=== PATIENT | female | born 1985 | race Caucasian/White ===

== ENCOUNTER 2016-05-01 21:06 | Emergency (ER) | payer OTHER ==
[~2016-05-01] VITALS: Ht 160 cm; Wt 51.9 kg
[~2016-05-01 21:06] MED LIST: ADDERALL XR 2020 MG PO; ATARAX,VISTARIL25 MG PO; ATARAX,VISTARIL50 MG PO; CIPRO250 MG PO; DULOXETINE HCL30 MG PO; LAMOTRIGINE100 MG PO; LAMOTRIGINE200 MG PO; LATUDA60 MG PO; LEVAQUIN750 MG PO; METHADONE 22 MG/1 ML PO; METHADONE H5 MG/5 ML PO; METHADONE10 MG PO; PRAZOSIN HCL2 MG PO; QUETIAPINE FUM300 MG PO; STRATTERA40 MG PO; XANAX0.5 MG PO
[2016-05-01 21:36] LABS: HEMATOCRIT 40.5 % (36.0-46.0); MCH 32.4 PG (29.0-34.0); MCHC 35.6 G/DL (30.0-36.0); MCV 91.2 FL (83-99); MEAN PLAT.VOLUME 8.4 uM^3 (9.5-12.4); PLATELET COUNT 397 K/uL (156-360); RBC DIS.WIDTH-SD 39.1 % (39-53); RED BLOOD COUNT 4.44 M/uL (3.80-5.20); WHITE BLOOD COUNT 9.5 K/uL (4.1-10.2)
[2016-05-01] MEDS ORDERED: GABAPENTIN300 MG PO (21:38)
[2016-05-01] MEDS ORDERED: ADDERALL (21:39)
[2016-05-01] MEDS ORDERED: LAMICTAL200 MG PO (21:39)
[2016-05-01 21:44] LABS: ADD MIUA? YES; BILIRUBIN NEGATIVE; BLOOD NEGATIVE; COLOR YELLOW ((YELLOW)); GLUCOSE (STRIP) NEGATIVE; KETONES NEGATIVE; LEUKOCYTES MODERATE; NITRITE NEGATIVE; PROTEIN (STRIP) NEGATIVE; SPECIFIC GRAVITY 1.015 (1.000-1.030); UROBILINOGEN 0.2 MG/DL (0.2-1.0)
[2016-05-01 21:48] LABS: CHLORIDE 111 mEq/L (99-109); POTASSIUM 3.5 mEq/L (3.7-5.4); SODIUM 145 mEq/L (136-147)
[2016-05-01 21:49] LABS: GLUCOSE 99 mg/dL (70-99)
[2016-05-01 21:51] LABS: ANION GAP 14 MEQ/L (2-14)
[2016-05-01 21:52] LABS: SERUM ETHYL ALCOHOL 323 mg/dL
[2016-05-01 21:53] LABS: GFR ESTIMATE (CALCULATED) > 59 mL/min/
[2016-05-01 21:55] LABS: UREA NITROGEN (BUN) 14 mg/dL (9-23)
[2016-05-01 21:56] LABS: SALICYLATE < 5.0 MG/DL (15-30)
[2016-05-01 22:05] LABS: QUANTITATIVE HCG < 4.0 MIU/ML
[2016-05-01 22:21] LABS: AMPHETAMINE NEGATIVE (500 ng/mL); BARBITURATES NEGATIVE (200 ng/mL); BENZODIAZEPINES NEGATIVE (150 ng/mL); COCAINE NEGATIVE (150 ng/mL); INTERNAL CONTROLS VALID? YES; METHADONE NEGATIVE (200 ng/mL); METHAMPHETAMINE NEGATIVE (500 ng/mL); OPIATES (MORPHINE) NEGATIVE (100 ng/mL); OXYCODONE NEGATIVE (100 ng/mL); PHENCYCLIDINE NEGATIVE (25 ng/mL); PROPOXYPHENE NEGATIVE (300 ng/mL); THC CANNABINOIDS NEGATIVE (50 ng/mL); TRICYCLIC ANTIDEPRESSANTS NEGATIVE (300 ng/mL)
[2016-05-01 22:24] LABS: BACTERIA 3+ /HPF; CASTS NONE SEEN /LPF; CRYSTALS NONE SEEN; EPITHELIAL CELLS 1+ /HPF; MUCUS RARE /LPF; RED BLOOD CELLS 0-5 /HPF (0-5); UCUL ADDED? NO; WHITE BLOOD CELLS 0-5 /HPF (0-5)
[2016-05-02 11:07] VITALS: BP 109/65
== END 2016-05-02 11:19 | disposition home or self-care (01) ==
LOC: EME 21:06
PROVIDERS: Emergency Medicine
DX: F10.129 Alcohol abuse with intoxication, unspecified (principal); Y90.8 Blood alcohol level of 240 mg/100 ml or more; F32.9 Major depressive disorder, single episode, unspecified; F41.9 Anxiety disorder, unspecified; F31.9 Bipolar disorder, unspecified; F43.10 Post-traumatic stress disorder, unspecified; F17.200 Nicotine dependence, unspecified, uncomplicated
CPT/HCPCS: 80048; 81003; 84702; 85027; 90837; 99281; 99285; G0480

== ENCOUNTER 2016-07-16 11:01 | Inpatient (IN) | payer OTHER ==
[~2016-07-16] VITALS: Ht 160 cm; Wt 50.0 kg
[~2016-07-16 11:01] MED LIST changes: +ADDERALL; +GABAPENTIN300 MG PO; +LAMICTAL200 MG PO
[2016-07-16 12:03] LABS: HEMATOCRIT 47.2 % (36.0-46.0); MCH 32.6 PG (29.0-34.0); MCHC 34.3 G/DL (30.0-36.0); MEAN PLAT.VOLUME 9.3 uM^3 (9.5-12.4); PLATELET COUNT 305 K/uL (156-360); RBC DIS.WIDTH-CV 12.9 % (11.8-14.6); RBC DIS.WIDTH-SD 45.2 % (39-53); RED BLOOD COUNT 4.97 M/uL (3.80-5.20); WHITE BLOOD COUNT 5.7 K/uL (4.1-10.2)
[2016-07-16 12:15] LABS: CHLORIDE 108 mEq/L (99-109); POTASSIUM 3.7 mEq/L (3.7-5.4); SODIUM 149 mEq/L (136-147)
[2016-07-16 12:17] LABS: GLUCOSE 89 mg/dL (70-99)
[2016-07-16 12:19] LABS: ANION GAP 15 MEQ/L (2-14); TOTAL BILIRUBIN 0.3 mg/dL (0.0-1.0)
[2016-07-16 12:20] LABS: SERUM ETHYL ALCOHOL 442 mg/dL
[2016-07-16 12:21] LABS: ALKALINE PHOSPHATASE 65 IU/L (3-129); GFR ESTIMATE (CALCULATED) > 59 mL/min/
[2016-07-16 12:22] LABS: UREA NITROGEN (BUN) 8 mg/dL (9-23)
[2016-07-16 12:31] LABS: QUANTITATIVE HCG < 4.0 MIU/ML
[2016-07-16 16:18] LABS: ADD MIUA? NO; BILIRUBIN NEGATIVE; BLOOD NEGATIVE; COLOR YELLOW ((YELLOW)); GLUCOSE (STRIP) NEGATIVE; KETONES NEGATIVE; LEUKOCYTES NEGATIVE; NITRITE NEGATIVE; PROTEIN (STRIP) NEGATIVE; UROBILINOGEN 0.2 MG/DL (0.2-1.0)
[2016-07-16 16:43] LABS: AMPHETAMINE PRESUMPTIVE POSITIVE (500 ng/mL); BARBITURATES NEGATIVE (200 ng/mL); BENZODIAZEPINES NEGATIVE (150 ng/mL); COCAINE NEGATIVE (150 ng/mL); METHADONE NEGATIVE (200 ng/mL); METHAMPHETAMINE NEGATIVE (500 ng/mL); OPIATES (MORPHINE) NEGATIVE (100 ng/mL); OXYCODONE NEGATIVE (100 ng/mL); PHENCYCLIDINE NEGATIVE (25 ng/mL); PROPOXYPHENE NEGATIVE (300 ng/mL); THC CANNABINOIDS NEGATIVE (50 ng/mL); TRICYCLIC ANTIDEPRESSANTS NEGATIVE (300 ng/mL)
[2016-07-16 16:44] LABS: ADD MEDTOX COMMENT Y; INTERNAL CONTROLS VALID? YES
[2016-07-17 14:02] VITALS: BP 114/74
[2016-07-17] MEDS ORDERED: CYMBALTA20 MG PO (14:42)
[2016-07-17] MEDS ORDERED: ADDERALL30 MG PO (14:45)
[2016-07-17 15:12] VITALS: BP 127/63
[2016-07-18 09:03] VITALS: BP 127/60
== END 2016-07-18 13:04 | disposition home or self-care (01) | DRG 885 ==
LOC: EME 11:01 → 1WEST 07-17 13:32
PROVIDERS: Emergency Medicine
DX: F33.9 Major depressive disorder, recurrent, unspecified (principal); R45.851 Suicidal ideations; F11.90 Opioid use, unspecified, uncomplicated; F15.90 Other stimulant use, unspecified, uncomplicated; F10.229 Alcohol dependence with intoxication, unspecified; Y90.8 Blood alcohol level of 240 mg/100 ml or more; F19.10 Other psychoactive substance abuse, uncomplicated; F17.210 Nicotine dependence, cigarettes, uncomplicated
CPT/HCPCS: 80053; 81003; 84702; 84999; 85027; 90837; G0480; J2060; J3411; J3475; J7030

== ENCOUNTER 2016-08-16 01:11 | Emergency (ER) | payer OTHER ==
[~2016-08-16] VITALS: Ht 162.6 cm; Wt 52.7 kg
[~2016-08-16 01:11] MED LIST changes: +ADDERALL30 MG PO; +CYMBALTA20 MG PO
[2016-08-16 01:37] LABS: HEMATOCRIT 38.6 % (36.0-46.0); MCH 32.3 PG (29.0-34.0); MCHC 33.4 G/DL (30.0-36.0); MCV 96.5 FL (83-99); MEAN PLAT.VOLUME 8.3 uM^3 (9.5-12.4); PLATELET COUNT 521 K/uL (156-360); RBC DIS.WIDTH-CV 12.4 % (11.8-14.6); RBC DIS.WIDTH-SD 44.5 % (39-53); WHITE BLOOD COUNT 9.8 K/uL (4.1-10.2)
[2016-08-16 01:45] LABS: CHLORIDE 110 mEq/L (99-109); POTASSIUM 3.6 mEq/L (3.7-5.4); SODIUM 145 mEq/L (136-147)
[2016-08-16 01:46] LABS: GLUCOSE 101 mg/dL (70-99)
[2016-08-16 01:48] LABS: ANION GAP 11 MEQ/L (2-14)
[2016-08-16 01:50] LABS: GFR ESTIMATE (CALCULATED) > 59 mL/min/; SERUM ETHYL ALCOHOL 383 mg/dL
[2016-08-16 01:51] LABS: UREA NITROGEN (BUN) 10 mg/dL (9-23)
[2016-08-16 01:56] LABS: AMPHETAMINE NEGATIVE (500 ng/mL); BARBITURATES NEGATIVE (200 ng/mL); BENZODIAZEPINES NEGATIVE (150 ng/mL); COCAINE NEGATIVE (150 ng/mL); INTERNAL CONTROLS VALID? YES; METHADONE NEGATIVE (200 ng/mL); METHAMPHETAMINE NEGATIVE (500 ng/mL); OPIATES (MORPHINE) NEGATIVE (100 ng/mL); OXYCODONE NEGATIVE (100 ng/mL); PHENCYCLIDINE NEGATIVE (25 ng/mL); PROPOXYPHENE NEGATIVE (300 ng/mL); THC CANNABINOIDS NEGATIVE (50 ng/mL); TRICYCLIC ANTIDEPRESSANTS NEGATIVE (300 ng/mL)
[2016-08-16 01:59] LABS: QUANTITATIVE HCG < 4.0 MIU/ML
[2016-08-16 14:15] VITALS: BP 94/60
== END 2016-08-16 14:24 | disposition home or self-care (01) ==
LOC: EME 01:11
DX: F10.20 Alcohol dependence, uncomplicated (principal); F33.1 Major depressive disorder, recurrent, moderate; F11.20 Opioid dependence, uncomplicated; Y90.8 Blood alcohol level of 240 mg/100 ml or more; F17.200 Nicotine dependence, unspecified, uncomplicated; Z88.1 Allergy status to other antibiotic agents
CPT/HCPCS: 80048; 84702; 85027; 90839; 99281; 99284; G0480

== ENCOUNTER 2016-08-22 14:53 | Inpatient (IN) | payer OTHER ==
[~2016-08-22] VITALS: Ht 160 cm; Wt 51.5 kg
[2016-08-22 16:06] LABS: MCH 32.7 PG (29.0-34.0); MCHC 34.2 G/DL (30.0-36.0); MCV 95.5 FL (83-99); RBC DIS.WIDTH-CV 12.6 % (11.8-14.6); RBC DIS.WIDTH-SD 44.2 % (39-53); RED BLOOD COUNT 3.98 M/uL (3.80-5.20); WHITE BLOOD COUNT 10.2 K/uL (4.1-10.2)
[2016-08-22 16:11] LABS: ADD MEDTOX COMMENT Y; AMPHETAMINE NEGATIVE (500 ng/mL); BARBITURATES NEGATIVE (200 ng/mL); BENZODIAZEPINES PRESUMPTIVE POSITIVE (150 ng/mL); COCAINE PRESUMPTIVE POSITIVE (150 ng/mL); INTERNAL CONTROLS VALID? YES; METHADONE NEGATIVE (200 ng/mL); METHAMPHETAMINE NEGATIVE (500 ng/mL); OPIATES (MORPHINE) NEGATIVE (100 ng/mL); OXYCODONE NEGATIVE (100 ng/mL); PHENCYCLIDINE NEGATIVE (25 ng/mL); PROPOXYPHENE NEGATIVE (300 ng/mL); THC CANNABINOIDS NEGATIVE (50 ng/mL); TRICYCLIC ANTIDEPRESSANTS NEGATIVE (300 ng/mL)
[2016-08-22 16:20] LABS: CHLORIDE 101 mEq/L (99-109); POTASSIUM 3.5 mEq/L (3.7-5.4); SODIUM 141 mEq/L (136-147)
[2016-08-22 16:22] LABS: GLUCOSE 140 mg/dL (70-99)
[2016-08-22 16:23] LABS: ANION GAP 15 MEQ/L (2-14)
[2016-08-22 16:25] LABS: SERUM ETHYL ALCOHOL 13 mg/dL
[2016-08-22 16:26] LABS: GFR ESTIMATE (CALCULATED) > 59 mL/min/
[2016-08-22 16:27] LABS: UREA NITROGEN (BUN) 18 mg/dL (9-23)
[2016-08-22 16:36] LABS: QUANTITATIVE HCG < 4.0 MIU/ML
[2016-08-22 16:51] LABS: BENZODIAZEPINES, URINE SCREEN POSITIVE (200 ng/mL)
[2016-08-22 16:51] LABS: PLATELET CLUMPS PRESENT - PLATELET COUNT APPEARS ADQ.
[2016-08-22 17:06] LABS: PLATELET COUNT UNABLE TO REPORT K/uL (156-360)
[2016-08-22] MEDS ORDERED: AMPHETAMINE SAL30 MG PO (19:08)
[2016-08-22] MEDS ORDERED: CLONAZEPAM0.5 MG PO (19:09)
[2016-08-22 20:08] VITALS: BP 111/70
[2016-08-22] MEDS ORDERED: MINIPRESS1 MG PO (20:22)
[2016-08-22 20:23] VITALS: BP 111/70
[2016-08-23 07:35] VITALS: BP 99/62
[2016-08-23 15:16] VITALS: BP 115/82
[2016-08-24 07:43] VITALS: BP 111/52
[2016-08-24 15:18] VITALS: BP 117/78
[2016-08-25 07:41] VITALS: BP 101/58
[2016-08-25 15:41] VITALS: BP 106/67
[2016-08-26 07:55] VITALS: BP 91/57
[2016-08-26 15:53] VITALS: BP 117/65
[2016-08-27 07:33] VITALS: BP 102/68
[2016-08-27 15:13] VITALS: BP 126/73
[2016-08-28 07:39] VITALS: BP 107/64
[2016-08-28] MEDS ORDERED: DULOXETINE HCL60 MG PO (09:40)
[2016-08-28] MEDS ORDERED: TRAZODONE HCL50 MG PO (09:40)
[2016-08-28] MEDS ORDERED: GABAPENTIN300 MG PO (09:40)
[2016-08-28] MEDS ORDERED: QUETIAPINE FUMA50 MG PO (09:40)
== END 2016-08-28 13:29 | disposition home or self-care (01) | DRG 885 ==
LOC: EME 14:53 → 1WEST 18:27 → EDOF 18:27 → 1WEST 20:05
PROVIDERS: Emergency Medicine
PROC: HZ2ZZZZ Detoxification Services for Substance Abuse Treatment (ICD-10-PCS; principal; 2016-08-23)
DX: F33.1 Major depressive disorder, recurrent, moderate (principal); R45.851 Suicidal ideations; F10.239 Alcohol dependence with withdrawal, unspecified; Y90.0 Blood alcohol level of less than 20 mg/100 ml; F11.20 Opioid dependence, uncomplicated; F14.10 Cocaine abuse, uncomplicated; F12.10 Cannabis abuse, uncomplicated; S05.11XA Contusion of eyeball and orbital tissues, right eye, initial encounter; Y04.2XXA Assault by strike against or bumped into by another person, initial encounter; F41.9 Anxiety disorder, unspecified; R73.9 Hyperglycemia, unspecified; E87.6 Hypokalemia; F17.200 Nicotine dependence, unspecified, uncomplicated; Z59.0 Homelessness
CPT/HCPCS: 70450; 80048; 84702; 84999; 85027; 90837; 97150 GO; 97166 GO; 99281; 99285; G0480; Q0177

== ENCOUNTER 2017-06-10 20:25 | Emergency (ER) | payer OTHER ==
[~2017-06-10] VITALS: Ht 160 cm; Wt 50.5 kg
[~2017-06-10 20:25] MED LIST changes: +AMPHETAMINE SAL30 MG PO; +CLONAZEPAM0.5 MG PO; +DULOXETINE HCL60 MG PO; +MINIPRESS1 MG PO; +QUETIAPINE FUMA50 MG PO; +TRAZODONE HCL50 MG PO
[2017-06-11 03:39] VITALS: BP 98/54
== END 2017-06-11 03:42 | disposition home or self-care (01) ==
LOC: EME 20:25
DX: F10.129 Alcohol abuse with intoxication, unspecified (principal)
CPT/HCPCS: 99281; 99284

== ENCOUNTER 2017-07-05 11:43 | Emergency (ER) | payer OTHER ==
[~2017-07-05] VITALS: Ht 160 cm; Wt 58.6 kg
[2017-07-05 12:44] LABS: APPEARANCE SL.HAZY ((CLEAR)); BILIRUBIN NEGATIVE; BLOOD NEGATIVE; COLOR YELLOW ((YELLOW)); GLUCOSE (STRIP) NEGATIVE; KETONES NEGATIVE; LEUKOCYTES NEGATIVE; NITRITE NEGATIVE; PROTEIN (STRIP) NEGATIVE; SPECIFIC GRAVITY 1.006 (1.000-1.030); UROBILINOGEN 0.2 MG/DL (0.2-1.0)
[2017-07-05 12:50] LABS: BASOPHIL (%) 0.4 % (0-1); EOSINOPHIL (%) 0.3 % (0-5); HEMATOCRIT 44.4 % (36.0-46.0); IMMATURE GRANULOCYTE (%) 0.1 % (0.0-0.7); LYMPHOCYTE (%) 23.7 % (15-42); LYMPHOCYTE COUNT 1.8 K/uL (1.0-2.8); MCV 91.5 FL (83-99); MONOCYTE COUNT 0.2 K/uL (0-0.8); NEUTROPHIL (%) 72.5 % (45-76); NEUTROPHIL COUNT 5.5 K/uL (1.8-6.4); PLATELET COUNT 421 K/uL (156-360); RBC DIS.WIDTH-CV 12.6 % (11.8-14.6); RBC DIS.WIDTH-SD 42.4 % (39-53); RED BLOOD COUNT 4.85 M/uL (3.80-5.20); WHITE BLOOD COUNT 7.6 K/uL (4.1-10.2)
[2017-07-05 12:55] LABS: THC CANNABINOIDS PRESUMPTIVE POSITIVE (50 ng/mL)
[2017-07-05 12:56] LABS: AMPHETAMINE NEGATIVE (500 ng/mL); BARBITURATES NEGATIVE (200 ng/mL); BENZODIAZEPINES NEGATIVE (150 ng/mL); BUPRENORPHINE NEGATIVE (10 ng/mL); COCAINE NEGATIVE (150 ng/mL); METHADONE PRESUMPTIVE POSITIVE (200 ng/mL); METHAMPHETAMINE NEGATIVE (500 ng/mL); OPIATES (MORPHINE) NEGATIVE (100 ng/mL); OXYCODONE NEGATIVE (100 ng/mL); PHENCYCLIDINE NEGATIVE (25 ng/mL); PROPOXYPHENE NEGATIVE (300 ng/mL); TRICYCLIC ANTIDEPRESSANTS NEGATIVE (300 ng/mL)
[2017-07-05 13:02] LABS: BACTERIA RARE /HPF; CALCIUM OXALATE CRYSTALS 1+ /HPF; EPITHELIAL CELLS 2+ /HPF; MUCUS TRACE /LPF; RED BLOOD CELLS 0-5 /HPF (0-5); WHITE BLOOD CELLS 0-5 /HPF (0-5)
[2017-07-05 13:03] LABS: CHLORIDE 103 mEq/L (99-109); POTASSIUM 4.1 mEq/L (3.7-5.4); SODIUM 142 mEq/L (136-147)
[2017-07-05 13:05] LABS: GLUCOSE 106 mg/dL (70-99)
[2017-07-05 13:08] LABS: CREATININE 0.7 mg/dL (0.6-1.3); GFR ESTIMATE (CALCULATED) > 59 mL/min/; SERUM ETHYL ALCOHOL 364 mg/dL
[2017-07-05 13:09] LABS: UREA NITROGEN (BUN) 8 mg/dL (9-23)
[2017-07-05 13:16] LABS: QUANTITATIVE HCG < 4.0 MIU/ML
[2017-07-05 14:00] LABS: TREPONEMA ANTIBODY NEGATIVE (NEGATIVE)
[2017-07-05 15:05] LABS: SOURCE SWAB
[2017-07-05] MEDS ORDERED: ZOFRAN ODT4 MG PO (23:58)
[2017-07-05] MEDS ORDERED: LIBRIUM25 MG PO (23:58)
[2017-07-06 00:21] VITALS: BP 123/82
[2017-07-06 11:05] LABS: HEPATITIS B SURFACE ANTIGEN Nonreactive
[2017-07-06 11:06] LABS: HEPATITIS C ANTIBODY REACTIVE
[2017-07-06 12:16] LABS: HIV-1/2 AB/AG COMBO Nonreactive
== END 2017-07-06 00:30 | disposition home or self-care (01) ==
LOC: EME 11:43
PROVIDERS: Emergency Medicine
DX: T76.21XA Adult sexual abuse, suspected, initial encounter (principal); F10.129 Alcohol abuse with intoxication, unspecified; F33.1 Major depressive disorder, recurrent, moderate; F41.9 Anxiety disorder, unspecified; F43.10 Post-traumatic stress disorder, unspecified; F31.9 Bipolar disorder, unspecified; Y90.8 Blood alcohol level of 240 mg/100 ml or more; Z79.891 Long term (current) use of opiate analgesic; Z87.891 Personal history of nicotine dependence; Z88.0 Allergy status to penicillin
CPT/HCPCS: 80048; 81003; 84702; 84999; 85025; 86780; 86803; 87340; 87389; 87491; 87591; 90839; 99281; 99285; G0480; J0696

== ENCOUNTER 2017-08-01 16:19 | Emergency (ER) | payer OTHER ==
[~2017-08-01] VITALS: Ht 160 cm; Wt 59.1 kg
[~2017-08-01 16:19] MED LIST changes: +LIBRIUM25 MG PO; +ZOFRAN ODT4 MG PO
[2017-08-01 16:50] LABS: HEMATOCRIT 38.9 % (36.0-46.0); MCH 33.1 PG (29.0-34.0); MCHC 35.5 G/DL (30.0-36.0); MCV 93.3 FL (83-99); PLATELET COUNT 378 K/uL (156-360); RBC DIS.WIDTH-CV 12.9 % (11.8-14.6); RBC DIS.WIDTH-SD 44.2 % (39-53); RED BLOOD COUNT 4.17 M/uL (3.80-5.20); WHITE BLOOD COUNT 6.6 K/uL (4.1-10.2)
[2017-08-01 16:55] LABS: HEMOGLOBIN 13.8 G/DL (11.9-15.5)
[2017-08-01 17:00] LABS: CHLORIDE 107 mEq/L (99-109); POTASSIUM 3.3 mEq/L (3.7-5.4); SODIUM 149 mEq/L (136-147)
[2017-08-01 17:02] LABS: GLUCOSE 108 mg/dL (70-99)
[2017-08-01 17:05] LABS: CREATININE 0.6 mg/dL (0.6-1.3); GFR ESTIMATE (CALCULATED) > 59 mL/min/
[2017-08-01 17:06] LABS: UREA NITROGEN (BUN) 10 mg/dL (9-23)
[2017-08-01 17:14] LABS: QUANTITATIVE HCG < 4.0 MIU/ML
[2017-08-01] MEDS ORDERED: VITAMIN B-1100 MG PO (17:56)
[2017-08-01] MEDS ORDERED: ZOFRAN ODT4 MG PO (17:56)
[2017-08-01] MEDS ORDERED: LIBRIUM25 MG PO (17:56)
[2017-08-01 18:08] LABS: APPEARANCE CLOUDY ((CLEAR)); BILIRUBIN NEGATIVE; BLOOD NEGATIVE; COLOR YELLOW ((YELLOW)); GLUCOSE (STRIP) NEGATIVE; KETONES NEGATIVE; LEUKOCYTES NEGATIVE; NITRITE NEGATIVE; PROTEIN (STRIP) 30; SPECIFIC GRAVITY 1.019 (1.000-1.030); UROBILINOGEN 0.2 MG/DL (0.2-1.0)
[2017-08-01 18:10] VITALS: BP 138/78
[2017-08-01 18:19] LABS: AMPHETAMINE NEGATIVE (500 ng/mL); BARBITURATES NEGATIVE (200 ng/mL); BENZODIAZEPINES NEGATIVE (150 ng/mL); BUPRENORPHINE NEGATIVE (10 ng/mL); COCAINE NEGATIVE (150 ng/mL); METHADONE PRESUMPTIVE POSITIVE (200 ng/mL); METHAMPHETAMINE NEGATIVE (500 ng/mL); OPIATES (MORPHINE) NEGATIVE (100 ng/mL); OXYCODONE NEGATIVE (100 ng/mL); PHENCYCLIDINE NEGATIVE (25 ng/mL); PROPOXYPHENE NEGATIVE (300 ng/mL); THC CANNABINOIDS NEGATIVE (50 ng/mL); TRICYCLIC ANTIDEPRESSANTS NEGATIVE (300 ng/mL)
[2017-08-01 19:10] LABS: AMORPHOUS URATES CRYSTALS 1+; BACTERIA RARE /HPF; CALCIUM OXALATE CRYSTALS 1+ /HPF; EPITHELIAL CELLS 2+ /HPF; MUCUS 1+ /LPF; RED BLOOD CELLS NONE SEEN /HPF (0-5); WHITE BLOOD CELLS NONE SEEN /HPF (0-5)
== END 2017-08-01 18:37 | disposition home or self-care (01) ==
LOC: EME 16:19
PROVIDERS: Nurse Practitioner Family
DX: F19.239 Other psychoactive substance dependence with withdrawal, unspecified (principal); F10.20 Alcohol dependence, uncomplicated; R25.1 Tremor, unspecified; F32.9 Major depressive disorder, single episode, unspecified; F17.200 Nicotine dependence, unspecified, uncomplicated
CPT/HCPCS: 80048; 81003; 84702; 85027; 99281; 99284